=== PATIENT | male | born 1955 | race Caucasian/White ===

== ENCOUNTER → 2017-03-11 | Outpatient (CLI) | payer OTHER | LOC: BMCIMAGING 14:39 | PROVIDERS: ATTEND Orthopaedic Surgery Hand Surgery | DX: S42.022A Displaced fracture of shaft of left clavicle, initial encounter for closed fracture (principal) ==

== ENCOUNTER → 2017-12-13 | Outpatient (CLI) | payer OTHER | LOC: BMCIMAGING 08:18 | PROVIDERS: ATTEND Orthopaedic Surgery Hand Surgery | DX: S42.022K Displaced fracture of shaft of left clavicle, subsequent encounter for fracture with nonunion (principal) ==